=== PATIENT | female | born 1970 | race American Indian/Alaskan Native ===

== ENCOUNTER 2018-02-21 04:29 | Emergency (ER) | payer SELFPAY ==
[2018-02-21] MEDS ORDERED: ZOFRAN ODT PO ONE (06:09)
--- NOTE | 2018-02-21 07:17 | Emergency Department Report ---
ED General Adult HPI - General Chief complaint: Headache Stated complaint: HEADACHE,MIGRAINE Time Seen by Provider: 02/21/18 07:11 Source: patient Mode of arrival: Ambulatory Limitations: No Limitations - History of Present Illness Initial comments: 47-year-old [place] female comes in complaining of headache with nausea and light sensitivity 2 days. Patient also reports that she did not take her blood pressure medicine since she was afraid to take it while taking pain medication. Patient reports that her last migraine was about one year ago. She reports that this is similar to how most of her migraines present. She reports that the headache is on the left temporal side and travels down to her left trapezius. Patient denies any chest pain shortness of breathing vomiting weakness difficulty talking difficulty swallowing no change of vision. Patient reports her last pain medication of Tylenol with approximately 3:30 this morning. Patient has a past medical history of diabetes hypertension hypercholesterolemia migraines. -: days(s) (2) Location: head Radiation: neck Severity scale (0 -10): 10 Quality: aching, sharp Consistency: constant Worsens with: none Associated Symptoms: nausea/vomiting, other (light sensitivity) Treatments Prior to Arrival: other (Tylenol) - Related Data Home Medications Medication Instructions Recorded Confirmed Last Taken Lisinopril 20 mg PO DAILY 02/21/18 02/21/18 Unknown Previous Rx's Medication Instructions Recorded Last Taken Type Aspirin [Aspirin BABY CHEW TAB] 81 mg PO QDAY #30 tab.chew 02/25/16 Unknown Rx Lovastatin [Altoprev] 20 mg PO ONCE #30 tab.er.24h 02/25/16 Unknown Rx Metformin HCl [Glucophage] 1,000 mg PO BID #60 tablet 02/25/16 Unknown Rx Ibuprofen [Motrin] 800 mg PO Q8HR PRN #15 tablet 07/20/16 Unknown Rx Butalb/Acetamin/Caff 50-325-40 1 tab PO Q6HR PRN #12 tab 02/21/18 Unknown Rx [Fioricet] Allergies Allergy/AdvReac Type Severity Reaction Status Date / Time No Known Allergies Allergy Verified 02/22/16 18:26 ED Review of Systems ROS: Stated complaint: HEADACHE,MIGRAINE Other details as noted in HPI Constitutional: denies: chills, fever Eyes: denies: eye pain, eye discharge, vision change ENT: denies: ear pain, throat pain Respiratory: denies: cough, shortness of breath, wheezing Cardiovascular: denies: chest pain, palpitations Endocrine: no symptoms reported Gastrointestinal: nausea. denies: abdominal pain, diarrhea Genitourinary: denies: urgency, dysuria, discharge Musculoskeletal: denies: back pain, joint swelling, arthralgia Skin: denies: rash, lesions Neurological: headache. denies: weakness, paresthesias Psychiatric: denies: anxiety, depression Hematological/Lymphatic: denies: easy bleeding, easy bruising ED Past Medical Hx - Past Medical History Hx Hypertension: Yes (no meds x 2 years) Hx Diabetes: Yes Hx Headaches / Migraines: Yes - Surgical History Past Surgical History?: No - Social History Smoking Status: Never Smoker Substance Use Type: None - Medications Home Medications: Home Medications Medication Instructions Recorded Confirmed Last Taken Type Aspirin [Aspirin BABY CHEW TAB] 81 mg PO QDAY #30 tab.chew 02/25/16 02/21/18 Unknown Rx Lovastatin [Altoprev] 20 mg PO ONCE #30 tab.er.24h 02/25/16 02/21/18 Unknown Rx Metformin HCl [Glucophage] 1,000 mg PO BID #60 tablet 02/25/16 02/21/18 Unknown Rx Ibuprofen [Motrin] 800 mg PO Q8HR PRN #15 tablet 07/20/16 02/21/18 Unknown Rx Butalb/Acetamin/Caff 50-325-40 1 tab PO Q6HR PRN #12 tab 02/21/18 Unknown Rx [Fioricet] Lisinopril 20 mg PO DAILY 02/21/18 02/21/18 Unknown History ED Physical Exam - General Limitations: No Limitations General appearance: alert, in no apparent distress - Head Head exam: Present: atraumatic, normocephalic - Eye Eye exam: Present: normal appearance - ENT ENT exam: Present: mucous membranes moist - Neck Neck exam: Present: normal inspection - Respiratory Respiratory exam: Present: normal lung sounds bilaterally. Absent: respiratory distress - Cardiovascular Cardiovascular Exam: Present: regular rate, normal rhythm. Absent: systolic murmur, diastolic murmur, rubs, gallop - GI/Abdominal GI/Abdominal exam: Present: soft, normal bowel sounds - Extremities Exam Extremities exam: Present: normal inspection - Back Exam Back exam: Present: normal inspection - Neurological Exam Neurological exam: Present: alert, oriented X3 - Psychiatric Psychiatric exam: Present: normal affect, normal mood - Skin Skin exam: Present: warm, dry, intact, normal color. Absent: rash ED Course Vital Signs 02/21/18 02/21/18 02/21/18 05:33 05:55 08:20 Temperature 98.2 F Pulse Rate 93 H 90 91 H Respiratory 18 18 Rate Blood Pressure 190/114 169/100 Blood Pressure 162/110 [Left] O2 Sat by Pulse 96 100 Oximetry - Reevaluation(s) Reevaluation #1: 02/21/18 08:30 Patient reports she feels much better she's ready to be discharged ED Medical Decision Making - Medical Decision Making Patient's been evaluated by this provider fast track. Discussed the patient we will give her a few injection Lupe Kenton improve her headache. Patient reports it her headache is similar in the past. Patient did take her lisinopril 20 mg while in triage. We will reevaluate her blood pressure prior to discharge. Discussed the patient we will send her home on some antimigraine medication. And that she should follow up with her primary care provider. Patient verbalized understanding. Critical care attestation.: If time is entered above; I have spent that time in minutes in the direct care of this critically ill patient, excluding procedure time. ED Disposition Clinical Impression: Migraine Qualifiers: Migraine type: unspecified Status migrainosus presence: without status migrainosus Intractability: intractable Qualified Code(s): G43.919 - Migraine, unspecified, intractable, without status migrainosus Disposition: DC-01 TO HOME OR SELFCARE Is pt being admited?: No Does the pt Need Aspirin: No Condition: Stable Instructions: Migraine Headache (ED) Additional Instructions: Please take medication as prescribed. If symptoms persist or gets worse please follow up with her primary care provider. Prescriptions: Butalb/Acetamin/Caff 50-325-40 [Fioricet] 1 tab PO Q6HR PRN #12 tab PRN Reason: Headache Referrals: ERIC NOGUEIRA MD [Primary Care Provider] - 3-5 Days Forms: Work/School Release Form(ED), Accompanied Note
[2018-02-21] MEDS ORDERED: TORADOL IM ONE (07:20)
[2018-02-21] MEDS ORDERED: BENADRYL IM ONE (07:20)
[2018-02-21] MEDS ORDERED: PHENERGAN PO ONE (07:20)
[2018-02-21] MEDS ORDERED: FLEXERIL PO ONE (07:25)
[2018-02-21 08:20] VITALS: BP 162/110
[2018-02-21] MEDS ORDERED: FLEXERIL ONE (10:14)
== END 2018-02-21 08:35 | disposition home or self-care (01) ==
LOC: ED 04:29
DX: G43.909 Migraine, unspecified, not intractable, without status migrainosus (principal); I10 Essential (primary) hypertension; E11.9 Type 2 diabetes mellitus without complications; Z79.84 Long term (current) use of oral hypoglycemic drugs
CPT/HCPCS: 96372; 99282; J1200; J1885; Q0162; Q0169

== ENCOUNTER 2018-11-10 04:36 | Emergency (ER) | payer SELFPAY ==
--- NOTE | 2018-11-10 07:46 | Emergency Department Report ---
HPI - General Chief Complaint: Urogenital-Female Time Seen by Provider: 11/10/18 07:18 - HPI HPI: This is a 48-year-old female who presents to ED complaining of some vaginal irritation for the past 4 days. Patient states she noticed an odor when she was having sex with her . Patient denies any vaginal discharge. Patient states she is at the clear normal discharge. She denies pelvic pain, vaginal bleeding, dysuria, hematuria, fever, chills, nausea vomiting. Patient states she is not worried about having a sexual transmitted disease. ED Past Medical Hx - Past Medical History Previous Medical History?: Yes Hx Hypertension: Yes (no meds x 2 years) Hx Diabetes: Yes Hx Headaches / Migraines: Yes Additional medical history: anemia - Surgical History Past Surgical History?: No - Social History Smoking Status: Never Smoker Substance Use Type: Alcohol - Medications Home Medications: Home Medications Medication Instructions Recorded Confirmed Last Taken Type Aspirin [Aspirin BABY CHEW TAB] 81 mg PO QDAY #30 tab.chew 02/25/16 02/21/18 Unknown Rx Lovastatin [Altoprev] 20 mg PO ONCE #30 tab.er.24h 02/25/16 02/21/18 Unknown Rx Metformin HCl [Glucophage] 1,000 mg PO BID #60 tablet 02/25/16 02/21/18 Unknown Rx Ibuprofen [Motrin] 800 mg PO Q8HR PRN #15 tablet 07/20/16 02/21/18 Unknown Rx Butalb/Acetamin/Caff 50-325-40 1 tab PO Q6HR PRN #12 tab 02/21/18 Unknown Rx [Fioricet] Lisinopril 20 mg PO DAILY 02/21/18 02/21/18 Unknown History Fluconazole [Diflucan] 150 mg PO ONCE #1 tablet 11/10/18 Unknown Rx metroNIDAZOLE [Metronidazole] 500 mg PO BID #14 tablet 11/10/18 Unknown Rx ED Review of Systems ROS: Stated complaint: VAGINAL DISCHARGE Other details as noted in HPI Comment: All other systems reviewed and negative Physical Exam - Physical Exam Vital Signs: Vital Signs 11/10/18 04:41 Temperature 97.9 F Pulse Rate 84 Respiratory 16 Rate Blood Pressure 167/79 O2 Sat by Pulse 100 Oximetry Physical Exam: GENERAL: Alert and oriented x3, no apparent distress, Normal Gait, atraumatic. HEAD: Head is normocephalic and a-traumatic. LUNGS: Symetrical with respiration, CTAB. HEART: S1, S2 present, regular rate and rhythm without murmur, ABDOMEN: No organomegaly was noted,Positive bowel sounds, soft, and non- distended. . Nontender to palpation on all Quadrants, NO CVA tenderness. ED Course Vital Signs 11/10/18 04:41 Temperature 97.9 F Pulse Rate 84 Respiratory 16 Rate Blood Pressure 167/79 O2 Sat by Pulse 100 Oximetry ED Medical Decision Making - Medical Decision Making 48-year-old female presents with vaginitis. We'll treat patient prophylaxis today with a vaginitis Diflucan. Patient is in no acute distress. Patient understands instructions Discussed the patient to follow-up with the primary care physician. Critical care attestation.: If time is entered above; I have spent that time in minutes in the direct care of this critically ill patient, excluding procedure time. ED Disposition Clinical Impression: Vaginitis Disposition: - TO HOME OR SELFCARE Is pt being admited?: No Does the pt Need Aspirin: No Condition: Stable Instructions: Bacterial Vaginosis (ED), Vaginitis (ED) Additional Instructions: Make sure to follow up with the primary care physician as discussed. Take all your medications as you've been prescribed. If you have any worsening symptoms or develop new symptoms please return to ED immediately. Prescriptions: Fluconazole [Diflucan] 150 mg PO ONCE #1 tablet metroNIDAZOLE [Metronidazole] 500 mg PO BID #14 tablet Referrals: AMY VALERO MD [Primary Care Provider] - 3-5 Days VINITA MOORE MD [Referring] - 3-5 Days Forms: Work/School Release Form(ED) Time of Disposition: 07:45
== END 2018-11-10 08:05 | disposition home or self-care (01) ==
LOC: ED 04:36
CPT/HCPCS: 99282